=== PATIENT | male | born 1965 | race Caucasian/White ===

== ENCOUNTER 2018-10-22 15:42 | Emergency (ER) | payer MEDICAID ==
[~2018-10-22] VITALS: Ht 167.6 cm; Wt 85.0 kg
[2018-10-22 16:13] VITALS: BP 116/76
[2018-10-22] MEDS ORDERED: HYDROcodone/acetaminophen 5mg/325mg tablet PO ONE (16:20)
[2018-10-22] MEDS ORDERED: KETO10TA2 PO (16:36)
[2018-10-22] MEDS ORDERED: ALBU6.7H INH (16:36)
--- NOTE | 2018-10-22 17:21 | NUR ---
MASSIEL JONES ASSESSED , TREATED AND DISCHARGED PT
== END 2018-10-22 17:23 | disposition home or self-care (01) ==
LOC: ER 15:43
DX: S20.211A Contusion of right front wall of thorax, initial encounter (principal); Z79.899 Other long term (current) drug therapy; V13.9XXA Unspecified pedal cyclist injured in collision with car, pick-up truck or van in traffic accident, initial encounter; Y93.55 Activity, bike riding; Y92.488 Other paved roadways as the place of occurrence of the external cause; Y99.8 Other external cause status
CPT/HCPCS: 71101; 99283